=== PATIENT | female | born 1935 | race Caucasian/White ===

== ENCOUNTER 2019-06-30 12:26 | Emergency (ER) | payer MEDICARE ==
[~2019-06-30] VITALS: Ht 162.6 cm; Wt 63.6 kg
[~2019-06-30 12:26] MED LIST: HYDR-3713 PO; HYDR1OIN2 TOP; KEFL500C17 PO; LIPI20TA PO; LOSA50TA88 PO; PRED5PAK PO; TOPR50TA PO; VALI5TAB PO
[2019-06-30] MEDS ORDERED: MECLIZINE 25 MG TABLET PO ONE (13:15)
--- NOTE | 2019-06-30 13:47 | REP ---
CT study of the cervical spine without contrast: History: Dizziness and head injury. Technique: Helical scanning is acquired and overlapping 2 mm high resolution axial images were generated and reviewed at bone and soft tissue window settings. Coronal and sagittal multiplanar re-formations images are generated. CT findings: There is no evidence of cervical spine element fracture. No skull base fracture is seen. Cervical vertebral body heights are preserved. Alignment is normal. Facet joints are normally aligned bilaterally at each cervical level on multiplanar re-formations images. There is no evidence of intraspinal or paraspinal hematoma. No extra vertebral abnormality is seen. There is reversal of the normal cervical lordosis. Advanced degenerative disc disease is seen at C3-4 seen 05/21 C5-6 and C6-7. There are osteoarthritic facet changes in the mid cervical spine bilaterally. There is central disc bulging at C3-4. Impression: Fairly advanced degenerative disc disease with reversal of the normal cervical lordosis and facet osteoarthritis. Otherwise negative CT study of the cervical spine without contrast. No fracture seen. Electronically Signed by Jl Jones MD 06/30/2019 01:39 P
[2019-06-30 13:52] LABS: BASO % 0.5 % (0.0-1.0); EOS % 0.3 % (0.0-3.0); HEMATOCRIT 39.7 % (36.0-47.0); HEMOGLOBIN 12.8 g/dl (12.0-15.5); LYMPH # 2.1 10^3/uL (1.5-5.0); LYMPH % 27.1 % (24.0-44.0); MEAN CORPUSCULAR HEMOGLOBIN 29.4 pg (27.0-33.0); MEAN CORPUSCULAR HGB CONC 32.2 g/dl (32.0-36.5); MEAN CORPUSCULAR VOLUME 91.3 fl (80.0-96.0); MONO % 13.2 % (0.0-5.0); NEUTROPHILS # 4.6 10^3/uL (1.5-8.5); NEUTROPHILS % 58.6 % (36.0-66.0); PLATELET COUNT, AUTOMATED 286 10^3/uL (150-450); RED BLOOD COUNT 4.35 10^6/uL (4.00-5.40); WHITE BLOOD COUNT 7.8 10^3/uL (4.0-10.0)
[2019-06-30 14:26] LABS: BLOOD UREA NITROGEN 15 MG/DL (7-18); CALCIUM LEVEL 9.2 MG/DL (8.8-10.2); CARBON DIOXIDE LEVEL 26 MEQ/L (21-32); CHLORIDE LEVEL 103 MEQ/L (98-107); CK-MB VALUE MASS 1.1 NG/ML (<3.6); CPK CREATINE PHOSPHOKINASE 50 U/L (26-192); GLOMERULAR FILTRATION RATE > 60.0 (>32); GLUCOSE, FASTING 85 MG/DL (70-100); POTASSIUM SERUM 4.3 MEQ/L (3.5-5.1); SODIUM LEVEL 137 MEQ/L (136-145); THYROID STIMULATING HORMONE 0.967 uIU/ML (0.358-3.740); TROPONIN I < 0.02 NG/ML (< 0.10)
--- NOTE | 2019-06-30 14:44 | REP ---
CT BRAIN WITHOUT CONTRAST: HISTORY: Head injury. Dizziness. Comparison CT study of the brain is from May 10, 2008. FINDINGS: Preliminary digital religious education director radiograph is unremarkable. There is vascular calcification in the distal internal carotid arteries bilaterally. The visualized paranasal sinuses are clear. No intraorbital abnormality is seen. There is mild generalized volume loss. Bilateral periventricular white matter low densities are seen consistent with small vessel changes. I suspect old lacunar infarcts in the basal ganglia bilaterally and in the periventricular frontal lobe white matter. There is no evidence of intracranial hemorrhage. No acute infarction is seen. No extra-axial fluid collection is observed. There is some physiologic calcification in the basal ganglia on the right which is unchanged. IMPRESSION: Mild diffuse atrophy, vascular calcification, small vessel changes. Old lacunar infarcts in the basal ganglia bilaterally. No acute intracranial abnormality. No skull fracture or intracranial injury seen. Electronically Signed by Jl Jones MD 06/30/2019 04:17 P
[2019-06-30] MEDS ORDERED: CETI10CA2 PO (15:25)
[2019-06-30] MEDS ORDERED: KEFL500C17 PO (15:25)
[2019-06-30] MEDS ORDERED: FLON1SPR NARES (15:25)
[2019-06-30] MEDS ORDERED: CEPHALEXIN 500 MG CAP PO ONE (15:30)
[2019-06-30 15:43] VITALS: BP 155/73
--- NOTE | 2019-06-30 22:17 | ECGEPIP ---
[facility] - ED Test Date: 2019-06-30 Pat Name: RONEL MAE Department: Room: - Gender: Female Typing Teacher: : 1935 Requested By: FABIO BELTRAN Order Number: [id number] Reading MD: Jas Pizano Measurements Intervals [place] Rate: 78 P: -37 GA: 185 QRS: 11 QRSD: 89 T: 13 QT: 366 QTc: 419 Interpretive Statements SINUS RHYTHM POOR R WAVE PROGRESSION NSTTW ABNORMALITIES SIMILAR TO 11/17/14 Electronically Signed on 06-30-2019 22:17:28 EDT by Jas Pizano
== END 2019-06-30 15:59 | disposition home or self-care (01) ==
LOC: M ED 12:26
DX: N39.0 Urinary tract infection, site not specified (principal); H65.03 Acute serous otitis media, bilateral; R42 Dizziness and giddiness; R29.6 Repeated falls; I10 Essential (primary) hypertension; E78.5 Hyperlipidemia, unspecified; Z88.5 Allergy status to narcotic agent; Z79.899 Other long term (current) drug therapy

== ENCOUNTER → 2019-09-29 | Outpatient (CLI) | payer MEDICARE ==
[~2019-09-29] MED LIST changes: +CETI10CA2 PO; +FLON1SPR NARES
--- NOTE | 2019-11-26 10:07 | REP ---
LEFT SHOULDER: 2-VIEWS HISTORY: Pain following an injury. FINDINGS: 2-views of the left shoulder are performed. No acute fracture or dislocation is seen. There is mild narrowing and spurring at the acromioclavicular joint. There is mild to moderate narrowing and spurring at the glenohumeral joint. IMPRESSION: Arthritic changes without evidence of acute fracture or dislocation. SUSIE
--- NOTE | 2019-11-26 10:08 | REP ---
LEFT ELBOW SERIES: 4-VIEWS HISTORY: Injury with pain. FINDINGS: 4-views of the left elbow are performed. No acute fracture or dislocation is seen. There is mild chondrocalcinosis at the elbow joint. There are mild tendinous calcifications at the humeral epicondyles. There are some ill-defined soft tissue calcifications in the proximal anterior forearm. I do not see a definite joint effusion. Minimal calcifications are seen in the distal triceps tendon. IMPRESSION: No acute fracture or dislocation. MTDD
--- NOTE | 2019-11-26 10:09 | REP ---
LEFT WRIST SERIES: 4-VIEWS HISTORY: Injury, pain. FINDINGS: 4-views of the left wrist are performed. I see no evidence of acute fracture or dislocation. There is diffuse chondrocalcinosis noted at the wrist and intercarpal joints. There is slight ulnar minus variance with the distal ulna approximately 3-4 mm shorter than the radius. There is moderate narrowing and sclerotic change at the joint between the scaphoid and trapezium. There is mild widening of the space between the scaphoid and lunate bones suggesting a scapholunate ligament tear. IMPRESSION: No acute fracture. There appears to be some widening of the scapholunate interval suggesting a scapholunate ligament tear. There are arthritic changes, as above. MTDD
--- NOTE | 2019-11-26 10:10 | REP ---
LEFT HAND SERIES: 4-VIEWS HISTORY: Injury with pain. FINDINGS: 4-views of the left hand performed. No acute fracture is seen. There is widening of the space between the scaphoid and lunate suggesting a scapholunate ligament tear. There is diffuse chondrocalcinosis at the wrist joint and intercarpal joints with mild periarticular calcifications noted at the metacarpophalangeal and interphalangeal joints. There is mild narrowing of the radiocarpal joint with subchondral sclerosis. There is moderate narrowing between the scaphoid and trapezium with subchondral sclerosis and mild narrowing between the trapezium and base of first metacarpal. There is moderate narrowing of the second through fourth metacarpophalangeal joints. There is mild diffuse narrowing of interphalangeal joints with mild scattered spurring predominantly at the base of the first through third distal phalanges. IMPRESSION: No acute fracture. Widening of the scapholunate interval suggests a scapholunate ligament tear. There are diffuse arthritic changes, as above. MTDD
== END ==
LOC: M WUC 09:38
PROVIDERS: ATTEND Physician Assistant
DX: M25.512 Pain in left shoulder (principal); M25.532 Pain in left wrist

== ENCOUNTER 2020-06-29 11:34 | Observation (INO) | payer MEDICARE ==
[~2020-06-29] VITALS: Ht 162.6 cm; Wt 62.9 kg
--- NOTE | 2020-06-29 12:13 | REPVR ---
PROCEDURE INFORMATION: Exam: CT Maxillofacial Without Contrast Exam date and time: 06/29/2020 11:39 AM Age: 84 years old Clinical indication: Injury or trauma; Fall; Blunt trauma (contusions or hematomas); Cheek bone and head/scalp and nose and orbit/periorbital; Loss of consciousness not known; Not specified; Bilateral TECHNIQUE: Imaging protocol: Computed tomography images of the face without contrast. Radiation optimization: All CT scans at this facility use at least one of these dose optimization techniques: automated exposure control; mA and/or kV adjustment per patient size (includes targeted exams where dose is matched to clinical indication); or iterative reconstruction. COMPARISON: CT Head without contrast 06/30/2019 1:16 PM FINDINGS: Orbital cavity: Bilateral cataract Ocular globes are intact. Bones/joints: No acute facial bone fracture. Paranasal sinuses: Normal. No air-fluid levels. Soft tissues: There is midline and right forehead hematoma. Vasculature: There is calcification at left greater than right carotid bifurcations. IMPRESSION: No acute facial bone fracture. Electronically signed by: Lorena Denney On 06/29/2020 12:13:19 PM
--- NOTE | 2020-06-29 12:14 | REPVR ---
PROCEDURE INFORMATION: Exam: CT Head Without Contrast Exam date and time: 06/29/2020 11:39 AM Age: 84 years old Clinical indication: Injury or trauma; Fall; Blunt trauma (contusions or hematomas) TECHNIQUE: Imaging protocol: Computed tomography of the head without contrast. Radiation optimization: All CT scans at this facility use at least one of these dose optimization techniques: automated exposure control; mA and/or kV adjustment per patient size (includes targeted exams where dose is matched to clinical indication); or iterative reconstruction. COMPARISON: CT Head without contrast 06/30/2019 1:16 PM FINDINGS: Brain: There is no acute intracranial hemorrhage. There is lucency in the cerebral white matter, likely microvascular disease although non-specific. There are chronic bilateral basal ganglia lacunar infarcts. Lezama white differentiation is intact. There are no extra-axial fluid collections. No evidence of mass. There is no mass effect or midline shift. Cerebral ventricles: The ventricles and sulci are enlarged, consistent with volume loss / atrophy. No hydrocephalus. Bones/joints: No acute fracture. Paranasal sinuses: Visualized sinuses are unremarkable. No fluid levels. Mastoid air cells: No significant mastoid effusion. Vasculature: There is vascular calcification. Soft tissues: There is midline and right forehead scalp hematoma and laceration IMPRESSION: 1. No evidence of acute intracranial abnormality. No evidence of acute infarction, hemorrhage, or mass. 2. Atrophy and microvascular disease. Electronically signed by: Lorena Denney On 06/29/2020 12:13:59 PM
--- NOTE | 2020-06-29 12:19 | REPVR ---
PROCEDURE INFORMATION: Exam: CT Cervical Spine Without Contrast Exam date and time: 06/29/2020 11:39 AM Age: 84 years old Clinical indication: Injury or trauma; Fall; Blunt trauma TECHNIQUE: Imaging protocol: Computed tomography images of the cervical spine without contrast. Radiation optimization: All CT scans at this facility use at least one of these dose optimization techniques: automated exposure control; mA and/or kV adjustment per patient size (includes targeted exams where dose is matched to clinical indication); or iterative reconstruction. COMPARISON: CT Spine,cervical w/o contrast 06/30/2019 1:16 PM FINDINGS: Bones/joints: There is no acute fracture. There is stable alignment with kyphosis at C3-C4 and grade 1 anterolisthesis of C2 on C3 and C7 on T1 and retrolisthesis of C4 on C5. Discs/Spinal canal/Neural foramina: There are degenerative changes with various degrees of neural foraminal narrowing and spinal stenosis C3-C4 through C6-C7. Neural foraminal narrowing appears severe right C3-C4, bilateral C4-C5 through C5-C6, and right C6-C7. Thyroid: Subcentimeter low-density right thyroid nodule does not warrant further evaluation given size and patient's age. Lungs: Lung apices are unremarkable for acute finding. Soft tissues: Calcification at left greater than right bifurcations. IMPRESSION: No evidence of acute fracture. Degenerative changes. COMMENTS: Consistent with the [employer]'s Incidental Findings Committee white paper (J Am Margaret Radiol 2015): In patients aged 35 years and older with an incidental thyroid nodule equal to or greater than 1.[address], MRI or extrathyroidal US, further evaluation with dedicated thyroid US is recommended for patients with normal life expectancy and without comorbidities. For smaller nodules without suspicious features, no further evaluation or follow up is recommended. Electronically signed by: Lorena Denney On 06/29/2020 12:19:33 PM
[2020-06-29] MEDS ORDERED: LIDOCAINE W/EPINEPHRINE 1% 20ML VIAL SC ONE (12:20)
[2020-06-29] MEDS ORDERED: DERMABOND TOPICAL SKIN ADHESIVE TOP ONE (12:20)
[2020-06-29] MEDS ORDERED: LIDOCAINE W/EPINEPHRINE 1% 20ML VIAL As Ordered ONE (12:23)
[2020-06-29] MEDS ORDERED: BOOSTRIX/ADACEL VACCINE (DIPHTH/PERTUSS/ACELL/TETANUS) 0.5ML SYR IM ONE (12:25)
[2020-06-29 12:48] LABS: BASO # 0.1 10^3/uL (0.0-0.2); BASO % 0.7 % (0.0-1.0); EOS # 0.1 10^3/uL (0.0-0.5); EOS % 0.8 % (0.0-3.0); HEMATOCRIT 41.1 % (36.0-47.0); HEMOGLOBIN 12.9 g/dl (12.0-15.5); LYMPH % 26.6 % (24.0-44.0); MEAN CORPUSCULAR HEMOGLOBIN 29.5 pg (27.0-33.0); MEAN CORPUSCULAR HGB CONC 31.4 g/dl (32.0-36.5); MEAN CORPUSCULAR VOLUME 93.8 fl (80.0-96.0); MONO # 0.7 10^3/uL (0.0-0.8); MONO % 9.8 % (2.0-8.0); NEUTROPHILS # 4.6 10^3/uL (1.5-8.5); NEUTROPHILS % 61.8 % (36.0-66.0); PLATELET COUNT, AUTOMATED 224 10^3/uL (150-450); RED BLOOD COUNT 4.38 10^6/uL (4.00-5.40); WHITE BLOOD COUNT 7.4 10^3/uL (4.0-10.0)
--- NOTE | 2020-06-29 12:48 | REP ---
INDICATION: Syncope/near-syncope. COMPARISON: 05/09/2014 the latest prior, a PA and lateral exam TECHNIQUE: Portable FINDINGS: The technique utilized in obtaining the radiograph has magnified the cardiac silhouette and accentuated the interstitial markings. There is mild cardiomegaly accentuated by technique. Since the last examination, significant right hilar fullness has developed. The lung ascencio are otherwise clear and unchanged. The pleural angles are sharp. The osseous structures are within normal limits. IMPRESSION: Right hilar adenopathy is suspected on this portable exam. Contrast-enhanced CT examination of the chest is recommended. <Electronically signed by Tim Herbert > 06/29/20 [id number]
[2020-06-29 13:25] LABS: BLOOD UREA NITROGEN 16 MG/DL (7-18); CALCIUM LEVEL 9.6 MG/DL (8.8-10.2); CARBON DIOXIDE LEVEL 27 MEQ/L (21-32); CHLORIDE LEVEL 108 MEQ/L (98-107); CK-MB VALUE MASS 3.3 NG/ML (<3.6); CPK CREATINE PHOSPHOKINASE 209 U/L (26-192); CREATININE FOR GFR 0.82 MG/DL (0.55-1.30); FREE T4 0.91 NG/DL (0.76-1.46); GLOMERULAR FILTRATION RATE > 60.0 (>32); GLUCOSE, FASTING 101 MG/DL (70-100); MAGNESIUM LEVEL 1.9 MG/DL (1.8-2.4); MB/CK RELATIVE INDEX 1.58 (< OR =4); POTASSIUM SERUM 4.4 MEQ/L (3.5-5.1); SODIUM LEVEL 140 MEQ/L (136-145); TROPONIN I < 0.02 NG/ML (< 0.10)
--- NOTE | 2020-06-29 13:39 | REP ---
INDICATION: trauma. COMPARISON: Two views of the right hip 09/14/2011 and two views of the left hip 05/10/2008 TECHNIQUE: AP pelvis and two views left hip FINDINGS: The left hip prosthesis has been revised since the last exam. The femoral and acetabular components are again seen to be well seated and well approximated. Moderate to severe degenerative changes are seen involving the right hip which is asymmetrically narrowed with mild subchondral sclerosis and moderate marginal osteophytosis. No acute fracture, dislocation, or subluxation is seen on either side. Degenerative changes are seen involving the imaged portions spine, sacroiliac joints, and symphysis pubis. IMPRESSION: There is no evidence of an acute abnormality. Findings as described above. <Electronically signed by Tim Herbert > 06/29/20 [id number]
--- NOTE | 2020-06-29 13:42 | REP ---
INDICATION: trauma COMPARISON: Left shoulder 09/29/2019. TECHNIQUE: Three views bilateral shoulders. FINDINGS: There is no evidence of acute fracture, dislocation, or intrinsic bone disease.There is mild spurring at the bilateral acromioclavicular joints. Subchondral cystic changes seen in the bilateral humeral heads. The right humeral head is high riding compatible with a rotator cuff tear. IMPRESSION: No fracture or dislocation. Findings consistent with rotator cuff tear on the right. <Electronically signed by Alejandro Lezama > 06/29/20 [id number]
--- NOTE | 2020-06-29 13:56 | REP ---
INDICATION: trauma COMPARISON: 09/29/2019. TECHNIQUE: Four views left hand. FINDINGS: There is no evidence of acute fracture, dislocation, or intrinsic bone disease.There is mild radiocarpal joint space narrowing. There is chondrocalcinosis distal to the ulna. There is widening of the scapholunate interval as seen on prior study suggesting a chronic scapholunate ligament tear. There is stable moderate narrowing and sclerosis at the joint between the scaphoid and trapezoid. There is significant narrowing of the 2nd and 3rd metacarpophalangeal joints with mild to moderate narrowing of the 4th and 5th metacarpophalangeal joints. There is diffuse narrowing of interphalangeal joints with mild scattered spurring. IMPRESSION: No fracture or dislocation. Arthritic changes as above. <Electronically signed by Alejandro Lezama > 06/29/20 [id number]
[2020-06-29] MEDS ORDERED: LABETALOL 100MG/20ML VIAL IV STA (15:04)
[2020-06-29] MEDS: KETOROLAC 30 MG/ML 1ML VIAL IV PRN (16:56)
--- NOTE | 2020-06-29 16:56 | HPEPDOC ---
[facility] Medical History & Physical Date of Admission June 29, 2020 Date of Service: June 29, 2020 Attending Physician: RUPESH ALVAREZ MD History and Physical CHIEF COMPLAINT: Syncope and resultant fall with facial trauma HISTORY OF PRESENT ILLNESS: Very pleasant 84 yo W with a history of PMR, HTN, HLD and osteoarthritis who was brought into the ED via EMS after sudden witnessed syncope while she was walking in her residential diop at the [facility] where she resides independently. She does not remember the events of the syncope but notes that she had had cup of coffee for breakfast and was walking to the laundry room when lost consciousness and later woke up with people surrounding her. She denies any prior chest pain, palpitations, dizziness, nausea, vertigo, vision changes, loss of bladder or bowel control, fever, chills, breathlessness. She has no history of prior syncope but does report that her BP meds make her quite dizzy and so she takes them at night which usually goes well. In the ED she was hypertensive to 228/109, with a HR of 89 and was given labetalol 10mg IV x 1. Workup was notable for CT head that was negative for fracture, masses or bleeding, CT C-spine that was negative for fractures but showed degenerative changes and stenosis at various levels, maxillofacial CT that showed no acute fractures, CXR that showed R hilar adenopathy without rib fracture, infiltrates, or effusions, L hand XR that showed no fractures or dislocation, L hip A/P and lateral including pelvis XR that showed no acute abnormalities and bilateral shoulder XR that reported a right high riding humeral head c/w a rotator cuff tear with no acute fractures. EKG showed NSR with some PVCs, troponin was negative, covid-19 was negative on respiratory panel and CK was slightly elevated at 209. WBC was 7.4, hgb 12.9, platelets 224, na 140, K 4.4, Cr 0.82. She had several lacerations and bruising and received 5 stitches to R upper forehead, a L hand Dermabond, 4 stitches to the lateral right chin. She is now being admitted to medicine for observation with investigation of etiology of her syncopal episode. PAST MEDICAL HISTORY: PMR, HTN, HLD and osteoarthritis. PAST SURGICAL HISTORY: R knee surgery Back surgery x 2 L hip surgery SOCIAL HISTORY: Tobacco use: None ETOH: None Illicit drug use: None FAMILY HISTORY: Non contributory ALLERGIES: Please see below. REVIEW OF SYSTEMS: 10 point ROS was completed and all positive elements were noted in the HPI above. All other elements were otherwise negative. PHYSICAL EXAMINATION: VITAL SIGNS: See below GENERAL APPEARANCE: Elderly lady, with facial bruising and fresh stitches in severel places, NAD, pleasant though she appears uncomfortable HEENT: Has large strip of fresh stitches at R forehead into head, with some dried blood in hair. Also has 4 stitches at R chin, purple bruising of right eye. MMM, EOMI, PERRLA CARDIOVASCULAR: RRR, no m/r/g LUNGS: CTAB, has bruise at medial right upper chest ABDOMEN: Normoactive sounds, soft, NTND EXTREMITIES: WWP, no LE edema, has L thigh bruise NEUROLOGICAL: CN2-12 intact, AOx3, moving all extremities, grossly nonfocal examination PSYCHIATRIC: AOx3 LABORATORY DATA and IMAGING: summarized above per HPI, otherwise see below for details MICROBIOLOGY: Please see below. ASSESSMENT: 84 yo W with a history of PMR, HTN, HLD and osteoarthritis who was brought into the ED via EMS after sudden witnessed syncope while she was walking in her residential diop at the [facility] where she resides independently and is now admitted with hypertensive urgency, R shoulder rotator cuff tear and for investigations for her syncopal episode. Syncope: Possible 2/2 hypertensive crisis thought it may be that she became hypertensive after the fall and injuries with ongoing pain. Will investigate cardiac etiologies -CT head was without mass or acute pathology -EKG was non ischemic and troponin was negative -Telemetry -orthostatic vitals signs -TTE -treat high BP, s/p labetalol in the ED, will resume home meds -UA, low suspicion for infection -glucose was >100 Syncope related fall with facial trauma -tylenol for mild pain, PRN -toradol 30mg IV Q6HP for severe pain -s/p stitched in the ED as noted above -Ortho was consulted in the ED for the R rotator cuff tear and recommended sling and outpatient ortho follow up R rotator cuff tear: -Ortho was consulted in the ED for the R rotator cuff tear and recommended sling and outpatient ortho follow up Hypertensive urgency: -continue home QHS toprol and losartan -s/p labetalol in the ED DVT ppx: TEDs and SCDs given recent fall with head trauma Dispo: PCU for hypertensive urgency that may require IV pushes of antihypertensives, obs Vital Signs Vital Signs Date Time Temp Pulse Resp B/P (MAP) Pulse Ox O2 Delivery O2 Flow Rate FiO2 06/29/20 16:01 71 172/98 (122) 73 184/98 (126) 84 174/98 (123) 06/29/20 15:49 16 06/29/20 15:30 98 06/29/20 12:35 97.5 Room Air Laboratory Data Labs 24H Laboratory Tests 2 06/29/20 12:31: Immature Granulocyte % (Auto) 0.3, Neutrophils (%) (Auto) 61.8, Lymphocytes (%) (Auto) 26.6, Monocytes (%) (Auto) 9.8H, Eosinophils (%) (Auto) 0.8, Basophils (%) (Auto) 0.7, Neutrophils # (Auto) 4.6, Lymphocytes # (Auto) 2.0, Monocytes # (Auto) 0.7, Eosinophils # (Auto) 0.1, Basophils # (Auto) 0.1, Nucleated Red Blood Cells % (auto) 0.0, Anion Gap 5L, Glomerular Filtration Rate > 60.0, Calcium Level 9.6, Magnesium Level 1.9, Total Creatine Kinase 209H, Creatine Kinase MB 3.3, Creatine Kinase MB Relative Index 1.58, Troponin I < 0.02, Thyroid Stimulating Hormone (TSH) 1.890, Free Thyroxine 0.91 CBC/BMP Laboratory Tests 06/29/20 12:31 Microbiology Microbiology 06/29/20 Respiratory Virus Panel (PCR) (MOIZ) - Final, Complete Home Medications Scheduled Losartan Potassium (Losartan Potassium) 50 Mg Tab, 50 MG PO QHS Metoprolol Succinate (Toprol Xl) 50 Mg Tab, 50 MG PO QHS Allergies Coded Allergies: morphine (Verified Adverse Reaction, Intermediate, nausea/ vomiting , 06/30/19) A-FIB/CHADSVASC A-FIB History Current/History of A-Fib/PAF?: No Current PO Anticoag Therapy: No Age/Risk Factor Scoring CHADSVASC: CHADSVASC Response (Comments) Value Age Risk Factor Age >/= 75 years old 2 Gender Risk Factor Female 1 Hx of CHF No 0 Hx of HTN Yes 1 Hx of Stroke/TIA/or VTE No 0 Hx of Diabetes No 0 Hx of Vascular Disease No 0 Total 4 Treatment Treatment ordered: NONE Reason Anticoagulant not given: Not indicated/[id number] RUPESH ALVAREZ MD June 29, 2020 16:56
[2020-06-29 20:38] VITALS: BP 148/86
[2020-06-29] MEDS ORDERED: METOPROLOL SUCC (TopROL XL) 50MG **XL** TAB PO SCH (21:00)
[2020-06-29] MEDS: LOSARTAN 50MG TABLET PO SCH (21:53)
[2020-06-29] MEDS: ACETAMINOPHEN TAB 650MG DOSE (2X325MG) PO PRN (21:55)
[2020-06-29] MEDS ORDERED: METOPROLOL SUCC *XL* 25MG TAB (TopROL *XL*) PO SCH (22:20)
[2020-06-30] VITALS (7 sets, daily range): BP systolic 118–187; BP diastolic 61–79
[2020-06-30 05:14] LABS: HEMOGLOBIN 11.6 g/dl (12.0-15.5); MEAN CORPUSCULAR HEMOGLOBIN 29.7 pg (27.0-33.0); MEAN CORPUSCULAR HGB CONC 32.2 g/dl (32.0-36.5); MEAN CORPUSCULAR VOLUME 92.1 fl (80.0-96.0); PLATELET COUNT, AUTOMATED 198 10^3/uL (150-450); RED BLOOD COUNT 3.91 10^6/uL (4.00-5.40)
[2020-06-30 05:37] LABS: BLOOD UREA NITROGEN 14 MG/DL (7-18); CALCIUM LEVEL 8.7 MG/DL (8.8-10.2); CARBON DIOXIDE LEVEL 28 MEQ/L (21-32); CHLORIDE LEVEL 109 MEQ/L (98-107); CREATININE FOR GFR 0.81 MG/DL (0.55-1.30); GLOMERULAR FILTRATION RATE > 60.0 (>32); GLUCOSE, FASTING 85 MG/DL (70-100); MAGNESIUM LEVEL 1.9 MG/DL (1.8-2.4); SODIUM LEVEL 142 MEQ/L (136-145)
[2020-06-30] MEDS: ACETAMINOPHEN TAB 650MG DOSE (2X325MG) PO PRN (06:25)
[2020-06-30] MEDS ORDERED: METOPROLOL SUCC *XL* 25MG TAB (TopROL *XL*) PO ONE (08:00)
--- NOTE | 2020-06-30 11:04 | IPNPDOC ---
Text Note Date of Service The patient was seen on 06/30/20. NOTE Subjective: -No acute complaints -Pain is tolerable per her report -Left thigh swelling has subsided PHYSICAL EXAMINATION: VITAL SIGNS: See below GENERAL APPEARANCE: Elderly lady, with facial bruising and fresh stitches in severel places, NAD, pleasant though she appears uncomfortable HEENT: Has large strip of fresh stitches at R forehead into head, with some dried blood in hair. Also has 4 stitches at R chin, purple bruising of right eye. MMM, EOMI, PERRLA CARDIOVASCULAR: RRR, no m/r/g LUNGS: CTAB, has bruise at medial right upper chest ABDOMEN: Normoactive sounds, soft, NTND EXTREMITIES: WWP, no LE edema, has L thigh bruise NEUROLOGICAL: CN2-12 intact, AOx3, moving all extremities, grossly nonfocal examination PSYCHIATRIC: AOx3 LABORATORY DATA: WBC 5 Hgb 11.6 platelets 198 Na 142 K 4 Cr 0.81 MICROBIOLOGY: Please see below. ASSESSMENT: 84 yo W with a history of PMR, HTN, HLD and osteoarthritis who was brought into the ED via EMS after sudden witnessed syncope while she was walking in her residential diop at the [facility] and is now admitted with hypertensive urgency, R shoulder rotator cuff tear and for investigations for her syncopal episode. Syncope: Possible 2/2 hypertensive crisis thought it may be that she became hypertensive after the fall and injuries with ongoing pain. Will investigate cardiac etiologies -CT head was without mass or acute pathology -EKG was non ischemic and troponin was negative -Telemetry unremarkable thus far -orthostatic vitals signs were negative -f/u pending TTE -low suspicion for infection, CXR and UA were negative -glucose was >100 and continues to be normoglycemic Syncope related collapse with facial trauma -tylenol for mild pain, PRN -toradol 30mg IV Q6HP for severe pain -tramadol [id number] for moderate to severe pain -s/p stitched in the ED as noted above -Ortho was consulted by the ED for the R rotator cuff tear and recommended sling and outpatient ortho follow up R rotator cuff tear: -Ortho was consulted by the ED for the R rotator cuff tear and recommended sling and outpatient ortho follow up Hypertensive urgency: -continue home QHS toprol and losartan -s/p labetalol in the ED DVT ppx: TEDs and SCDs given recent fall with head trauma Dispo: obs pending TTE and PT/OT eval VS,Fishbone, I+O VS, Fishbone, I+O Laboratory Tests 06/29/20 12:31 06/30/20 04:57 Vital Signs Date Time Temp Pulse Resp B/P (MAP) Pulse Ox O2 Delivery O2 Flow Rate FiO2 06/30/20 07:13 96.9 62 19 187/79 (115) 100 Room Air I&O- Last 24 Hours up to 6 AM 06/30/20 06:00 Intake Total 240 ml Output Total 540 ml Balance -300 ml RUPESH ALVAREZ MD June 30, 2020 07:35
[2020-06-30] MEDS: traMADol 50 MG TAB PO PRN (11:39)
--- NOTE | 2020-06-30 13:42 | ECGEPIP ---
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
--- NOTE | 2020-06-30 14:25 | CR ---
ORTHOPEDIC CONSULTATION DATE: 06/29/2020 REASON FOR CONSULTATION: Right shoulder concern for rotator cuff tear. CHIEF COMPLAINT: Syncopal episode resulting in fall with some musculoskeletal complaints. HISTORY OF PRESENT ILLNESS: Patient is an 84-year-old female with a past medical history of hypertension, hyperlipidemia, osteoarthritis, who presented to the emergency department after a syncopal episode and a fall. She had multiple areas of bruising, but orthopedics was consulted for bilateral shoulder pain and concern for possible right rotator cuff tear. Also had some hand pain and some left hip pain. There were no fractures found on any of the imaging, but due to concern for possible rotator cuff tear on the right, orthopedics was consulted. Otherwise, no musculoskeletal complaints. PAST MEDICAL HISTORY: 1. Polymyalgia rheumatica (PMR). 2. Hypertension. 3. Hyperlipidemia. 4. Osteoarthritis. PAST SURGICAL HISTORY: 1. Right knee surgery. 2. Back surgery times two. 3. Left hip surgery, multiple. SOCIAL HISTORY: Tobacco: None. Alcohol: None. Drug use: None. FAMILY HISTORY: Noncontributory. ALLERGIES: See medical record. REVIEW OF SYSTEMS: A 10 point review of systems is complete and all positive elements were noted in the history of present illness (HPI). Otherwise, no other complaints. PHYSICAL EXAMINATION: GENERAL: Well-developed, well-nourished, no acute distress. NEUROLOGIC: Alert and oriented times four. PSYCHOLOGIC: Normal mood and affect. CARDIOVASCULAR: Regular rate and rhythm. RESPIRATORY: Nonlabored breathing. Equal chest rise and fall. ABDOMEN: Nontender. SKIN: There are some areas of bruising throughout her chest, upper extremities and face. She has a laceration on the right side of her chin that was closed previously. MUSCULOSKELETAL: Focused exam of bilateral shoulders demonstrates no ecchymosis, swelling or breaks in skin. The patient has near full range of active motion and passive motion. She is a little bit sore in her bilateral deltoids. She otherwise has no tenderness to palpation. Otherwise neurovascularly intact distally. Left hand has a small laceration that was glued in the emergency department. No other areas of tenderness to palpation. She is able to move her hand fully. Not much pain anymore. Neurovascularly intact. Left hip: She has good range of motion of the hip. She is able to stand without much pain. She has a little bit of lateral thigh tenderness, but is otherwise neurovascularly intact distally. IMAGING: X-rays of the left hip demonstrate prior instrumentation for a total hip arthroplasty. It appears to be within normal limits. Left hand demonstrates degenerative changes throughout, but no osseous abnormalities. Bilateral shoulders demonstrate right shoulder high-riding humeral head consistent with possible rotator cuff tear. There are no axillary images, but the shoulder does appear to be reduced on the scapula wide view. ASSESSMENT: This is an 84-year-old female with concern for possible right shoulder rotator cuff tear based on the x-rays. I had a long discussion with the patient about her previous shoulder status before her fall. She said that her shoulder has had some aches and pains in it for a long time and that at this point, the day after her fall, it feels about the same as it did. There is a high chance she had a rotator cuff tear and/or rotator cuff arthropathy in that right shoulder. She says it has been very functional other than some aches and pains. I recommend just getting bilateral axillary views of the shoulder to assure that the glenohumeral joint is reduced. If she wishes to proceed with any further workup, I would recommend right shoulder MRI and followup with orthopedic surgery as an outpatient. If she does not desire to do this because her shoulder feels okay, then that is up to her and she and I discussed this. For now, she can wear a sling for comfort only as needed. If she wishes not to wear it, then that is okay as well. As long as the x-rays of the x-rayed shoulder is okay, no other orthopedic evaluation is necessary during this hospital stay. Would recommend physical therapy, occupational therapy for mobilization and likely weightbearing as tolerated of the bilateral upper extremities and bilateral lower extremities.
[2020-06-30] MEDS: KETOROLAC 30 MG/ML 1ML VIAL IV PRN (17:22)
[2020-06-30] MEDS: LOSARTAN 50MG TABLET PO SCH (20:54)
[2020-06-30] MEDS: METOPROLOL SUCC (TopROL XL) 50MG **XL** TAB PO SCH (20:54)
[2020-06-30] MEDS ORDERED: METOPROLOL TART 25 MG TABLET PO SCH (21:00)
[2020-07-01] VITALS (8 sets, daily range): BP systolic 121–166; BP diastolic 57–100
[2020-07-01 05:05] LABS: HEMATOCRIT 38.5 % (36.0-47.0); HEMOGLOBIN 12.1 g/dl (12.0-15.5); MEAN CORPUSCULAR HEMOGLOBIN 29.5 pg (27.0-33.0); MEAN CORPUSCULAR HGB CONC 31.4 g/dl (32.0-36.5); MEAN CORPUSCULAR VOLUME 93.9 fl (80.0-96.0); PLATELET COUNT, AUTOMATED 216 10^3/uL (150-450); WHITE BLOOD COUNT 5.6 10^3/uL (4.0-10.0)
[2020-07-01 05:29] LABS: BLOOD UREA NITROGEN 22 MG/DL (7-18); CALCIUM LEVEL 8.7 MG/DL (8.8-10.2); CARBON DIOXIDE LEVEL 27 MEQ/L (21-32); CHLORIDE LEVEL 106 MEQ/L (98-107); CREATININE FOR GFR 0.86 MG/DL (0.55-1.30); GLOMERULAR FILTRATION RATE > 60.0 (>32); GLUCOSE, FASTING 92 MG/DL (70-100); POTASSIUM SERUM 4.6 MEQ/L (3.5-5.1); SODIUM LEVEL 138 MEQ/L (136-145)
[2020-07-01] MEDS: ACETAMINOPHEN TAB 650MG DOSE (2X325MG) PO PRN (09:07)
[2020-07-01] MEDS: KETOROLAC 30 MG/ML 1ML VIAL IV PRN ×2 (09:07→16:23)
--- NOTE | 2020-07-01 10:25 | REP ---
INDICATION: bilateral axillary views per orthopedics. COMPARISON: 06/29/2020. TECHNIQUE: Bilateral axillary views of the shoulders. FINDINGS: There is no acute fracture or dislocation. There is mild joint space narrowing bilaterally. IMPRESSION: Mild narrowing at the glenohumeral joints bilaterally. <Electronically signed by Alejandro Lezama > 07/01/20 1022
--- NOTE | 2020-07-01 11:17 | IPNPDOC ---
Text Note Date of Service The patient was seen on 07/01/20. NOTE Subjective: -No acute complaints -Pain is tolerable per her report -Left thigh swelling has subsided PHYSICAL EXAMINATION: VITAL SIGNS: See below GENERAL APPEARANCE: Elderly lady, with facial bruising and fresh stitches in severel places, NAD, pleasant though she appears uncomfortable HEENT: Has large strip of fresh stitches at R forehead into head, with some dried blood in hair. Also has 4 stitches at R chin, purple bruising of right eye. MMM, EOMI, PERRLA CARDIOVASCULAR: RRR, no m/r/g LUNGS: CTAB, has bruise at medial right upper chest ABDOMEN: Normoactive sounds, soft, NTND EXTREMITIES: WWP, no LE edema, has L thigh bruise NEUROLOGICAL: CN2-12 intact, AOx3, moving all extremities, grossly nonfocal examination PSYCHIATRIC: AOx3 LABORATORY DATA: WBC 5 Hgb 11.6 platelets 198 Na 142 K 4 Cr 0.81 MICROBIOLOGY: Please see below. ASSESSMENT: 84 yo W with a history of PMR, HTN, HLD and osteoarthritis who was brought into the ED via EMS after sudden witnessed syncope while she was walking in her residential diop at the [facility] where she resides independently and is now admitted with hypertensive urgency, R shoulder rotator cuff tear and for investigations for her syncopal episode. Syncope: Possible 2/2 hypertensive crisis thought it may be that she became hypertensive after the fall and injuries with ongoing pain. Will investigate cardiac etiologies -CT head was without mass or acute pathology -EKG was non ischemic and troponin was negative -Telemetry unremarkable thus far -orthostatic vitals signs were negative -f/u pending TTE -low suspicion for infection, CXR and UA were negative -glucose was >100 and continues to be normoglycemic Syncope related collapse with facial trauma -tylenol for mild pain, PRN -toradol 30mg IV Q6HP for severe pain -tramadol [id number] for moderate to severe pain -s/p stitched in the ED as noted above -Ortho was consulted by the ED for the R rotator cuff tear and recommended R shoulder XR with bilateral auxillary views, sling and outpatient ortho follow up. If XR is concerning, can consider MRI if she is agreeable but would otherwise follow up outpatient. R rotator cuff tear: -Ortho was consulted by the ED for the R rotator cuff tear and recommended sling and outpatient ortho follow up Hypertensive urgency: -continue home QHS toprol and losartan -s/p labetalol in the ED DVT ppx: TEDs and SCDs given recent fall with head trauma Dispo: obs pending TTE and PT/OT eval pending recommendations. VS,Fishbone, I+O VS, Fishbone, I+O Laboratory Tests 07/01/20 04:41 Vital Signs Date Time Temp Pulse Resp B/P (MAP) Pulse Ox O2 Delivery O2 Flow Rate FiO2 07/01/20 07:32 97.1 60 18 142/71 (94) 98 Room Air I&O- Last 24 Hours up to 6 AM 07/01/20 06:00 Intake Total 236 ml Output Total 700 ml Balance -464 ml RUPESH ALVAREZ MD July 01, 2020 08:55
[2020-07-01] MEDS: PANTOPRAZOLE 40MG TAB (PROTONIX) PO SCH (11:39)
[2020-07-01] MEDS: METOPROLOL SUCC (TopROL XL) 50MG **XL** TAB PO SCH (20:54)
[2020-07-01] MEDS: LOSARTAN 50MG TABLET PO SCH (20:55)
[2020-07-02] MEDS: traMADol 50 MG TAB PO PRN (04:37)
[2020-07-02 05:55] LABS: HEMATOCRIT 39.5 % (36.0-47.0); HEMOGLOBIN 12.9 g/dl (12.0-15.5); MEAN CORPUSCULAR HEMOGLOBIN 30.2 pg (27.0-33.0); MEAN CORPUSCULAR HGB CONC 32.7 g/dl (32.0-36.5); MEAN CORPUSCULAR VOLUME 92.5 fl (80.0-96.0); PLATELET COUNT, AUTOMATED 209 10^3/uL (150-450); RED BLOOD COUNT 4.27 10^6/uL (4.00-5.40); WHITE BLOOD COUNT 5.3 10^3/uL (4.0-10.0)
[2020-07-02 06:00] VITALS: BP 164/95
[2020-07-02 06:21] LABS: BLOOD UREA NITROGEN 21 MG/DL (7-18); CALCIUM LEVEL 8.8 MG/DL (8.8-10.2); CARBON DIOXIDE LEVEL 20 MEQ/L (21-32); CHLORIDE LEVEL 112 MEQ/L (98-107); CREATININE FOR GFR 0.87 MG/DL (0.55-1.30); GLOMERULAR FILTRATION RATE > 60.0 (>32); GLUCOSE, FASTING 91 MG/DL (70-100); MAGNESIUM LEVEL 2.1 MG/DL (1.8-2.4); POTASSIUM SERUM 4.7 MEQ/L (3.5-5.1); SODIUM LEVEL 141 MEQ/L (136-145)
--- NOTE | 2020-07-02 07:45 | ECHO ---
DATE OF PROCEDURE: 06/30/2020 Age: 84 Gender: Female Height: 64 inches Weight: 149 pounds REFERRING PHYSICIAN: Aditi Wall M.D. INDICATION: Syncope. MEASUREMENTS: IVS 1.2 cm LV 3.6 cm LVPW 1.0 cm LA 3.9 cm Aorta 2.6 cm Ascending aorta 4.1 IVC 1.8 cm Mitral E wave velocity 78 cm/s Mitral A wave 90 cm/s E prime septal 6.6 cm/s E prime lateral 7.2 cm/s FINDINGS: This study is of acceptable technical quality. The patient is in sinus rhythm. Left ventricle is normal size and systolic function with estimated EF around 60%. Computer calculated LVEF was 54%. I do not appreciate any segmental wall motion abnormalities. Right ventricle also appears to have normal size and systolic function. Both atria appear grossly normal. Aortic valve is tricuspid and has normal mobility. There are mild degenerative changes of the mitral valve with mitral annular calcifications, but mobility of leaflets is preserved. Tricuspid and pulmonic valves appear normal. No pericardial effusion is noted. Inferior vena cava is normal size and collapses with inspiration. Aortic root is normal. Ascending aorta is mildly dilated at 4.1 cm. Aortic arch was not well seen. Abdominal aorta appears normal. Doppler interrogation of the aortic valve reveals no stenosis or insufficiency. There is approximately [id number] mitral insufficiency, mild tricuspid insufficiency, and trace pulmonic insufficiency. Calculated pulmonary artery pressure is around 30 mmHg corresponding to borderline pulmonary hypertension. Mitral inflow pattern and tissue Doppler imaging of the mitral annulus revealed grade 1 diastolic dysfunction. CONCLUSIONS: 1. Study is of acceptable technical quality. Underlying sinus rhythm. 2. Normal LV size with borderline LVH and overall preserved LV systolic function. Grade 1 diastolic dysfunction. 3. [id number] mitral insufficiency. 4. Likely normal central venous pressure and borderline pulmonary hypertension. 5. Mildly dilated ascending aorta (4.1 cm). COMMENT: No findings to explain syncopal event. MTDD
[2020-07-02] MEDS: PANTOPRAZOLE 40MG TAB (PROTONIX) PO SCH (09:27)
[2020-07-02] MEDS: KETOROLAC 30 MG/ML 1ML VIAL IV PRN (10:13)
[2020-07-02] MEDS ORDERED: TRAM50TA2 PO (12:03)
[2020-07-02] MEDS ORDERED: ACET1TAB55 PO (12:03)
--- NOTE | 2020-07-02 12:34 | DS.PDOC ---
Discharge Summary General Date of Admission June 29, 2020 at 15:21 Date of Discharge 07/02/2020 Attending Physician: RUPESH ALVAREZ MD Discharge Summary PROCEDURES PERFORMED DURING STAY: Syncope ADMITTING DIAGNOSES: Syncope DISCHARGE DIAGNOSES: Syncope, likely vasovagal R rotator cuff tear 2/2 syncope with collapse Multiple facial lacerations s/p stitches HTN Osteoarthritis PMR COMPLICATIONS/CHIEF COMPLAINT: Multiple Lacerations,Syncope. HISTORY OF PRESENT ILLNESS: Very pleasant 84 yo W with a history of PMR, HTN, HLD and osteoarthritis who was brought into the ED via EMS after sudden witnessed syncope while she was walking in her residential diop at the [facility] where she resides independently. She did not remember the events of the syncope but noted that she had had cup of coffee for breakfast and was walking to the laundry room when lost consciousness and later woke up with people surrounding her. She denied any prior chest pain, palpitations, dizziness, nausea, vertigo, vision changes, loss of bladder or bowel control, fever, chills, breathlessness. She has no history of prior syncope but does report that her BP meds make her quite dizzy and so she takes them at night which usually goes well. HOSPITAL COURSE: In the ED she was hypertensive to 228/109, with a HR of 89 and was given labetalol 10mg IV x 1. Workup was notable for CT head that was negative for fracture, masses or bleeding, CT C-spine that was negative for fractures but showed degenerative changes and stenosis at various levels, maxillofacial CT that showed no acute fractures, CXR that showed R hilar adenopathy without rib fracture, infiltrates, or effusions, L hand XR that showed no fractures or dislocation, L hip A/P and lateral including pelvis XR that showed no acute abnormalities and bilateral shoulder XR that reported a right high riding humeral head c/w a rotator cuff tear with no acute fractures. EKG showed NSR with some PVCs, troponin was negative, covid-19 was negative on respiratory panel and CK was slightly elevated at 209. WBC was 7.4, hgb 12.9, platelets 224, na 140, K 4.4, Cr 0.82. She had several lacerations and bruising and received 5 stitches to R upper forehead, a L hand Dermabond, 4 stitches to the lateral right chin. She is now being admitted to medicine for observation with investigation of etiology of her syncopal episode. While inpatient, she had no abnormal events on telemetry and remained in sinus rhythm, had a TTE that showed a normal EF and systolic function with mild grade 1 diastolic dysfunction. She complained on neck and shoulder pain and orthopedics was consulted that recommended continuing splint, dedicated R shoulder imaging by XR that showed ... and otherwise outpatient follow up. She worked with PT/OT and initially her efforts were hindered by pain but that improved, though it should be noted that she is apprehensive about taking pain medication and has chronic dizziness and so I eventually convinced her to take full dose tylenol and tramadol when the pain is severe. She will be now discharged home with her daughter who will taker her to her home for a week or so before she returns to independently living at her [facility] apartment. DISCHARGE MEDICATIONS: Please see below. ALLERGIES: Please see below. PHYSICAL EXAMINATION ON DISCHARGE: VITAL SIGNS: Please see below. GENERAL APPEARANCE: Elderly lady, with facial bruising and fresh stitches on chin and R forehead, NAD pleasant HEENT: Has stitches at R forehead into her hair, with some dried blood in hair. Also has 4 stitches at R chin, purple bruising of right eye. MMM, EOMI, PERRLA CARDIOVASCULAR: RRR, no m/r/g LUNGS: CTAB, has bruise at medial right upper chest ABDOMEN: Normoactive sounds, soft, NTND EXTREMITIES: WWP, no LE edema, has L thigh bruise NEUROLOGICAL: CN2-12 intact, AOx3, moving all extremities, grossly nonfocal examination PSYCHIATRIC: AOx3 LABORATORY DATA: Please see below. IMAGING: XR shoulder: Bilateral axillary views of the shoulders. FINDINGS: There is no acute fracture or dislocation. There is mild joint space narrowing bilaterally. IMPRESSION: Mild narrowing at the glenohumeral joints bilaterally. Bilateral shoulder XR complete: There is no evidence of acute fracture, dislocation, or intrinsic bone disease.There is mild spurring at the bilateral acromioclavicular joints. Subchondral cystic changes seen in the bilateral humeral heads. The right humeral head is high riding compatible with a rotator cuff tear. IMPRESSION: No fracture or dislocation. Findings consistent with rotator cuff tear on the right. L hip XR: The left hip prosthesis has been revised since the last exam. The femoral and acetabular components are again seen to be well seated and well approximated. Moderate to severe degenerative changes are seen involving the right hip which is asymmetrically narrowed with mild subchondral sclerosis and moderate marginal osteophytosis. No acute fracture, dislocation, or subluxation is seen on either side. Degenerative changes are seen involving the imaged portions spine, sacroiliac joints, and symphysis pubis. IMPRESSION: There is no evidence of an acute abnormality. Findings as described above. L hand XR: There is no evidence of acute fracture, dislocation, or intrinsic bone disease.There is mild radiocarpal joint space narrowing. There is chondrocalcinosis distal to the ulna. There is widening of the scapholunate interval as seen on prior study suggesting a chronic scapholunate ligament tear. There is stable moderate narrowing and sclerosis at the joint between the scaphoid and trapezoid. There is significant narrowing of the 2nd and 3rd metacarpophalangeal joints with mild to moderate narrowing of the 4th and 5th metacarpophalangeal joints. There is diffuse narrowing of interphalangeal joints with mild scattered spurring. IMPRESSION: No fracture or dislocation. Arthritic changes as above. CXR: The technique utilized in obtaining the radiograph has magnified the cardiac silhouette and accentuated the interstitial markings. There is mild cardiomegaly accentuated by technique. Since the last examination, significant right hilar fullness has developed. The lung ascencio are otherwise clear and unchanged. The pleural angles are sharp. The osseous structures are within normal limits. IMPRESSION: Right hilar adenopathy is suspected on this portable exam. Contrast-enhanced CT examination of the chest is recommended. Maxillofacial CT: Orbital cavity: Bilateral cataract Ocular globes are intact. Bones/joints: No acute facial bone fracture. Paranasal sinuses: Normal. No air-fluid levels. Soft tissues: There is midline and right forehead hematoma. Vasculature: There is calcification at left greater than right carotid bifurcations. IMPRESSION: No acute facial bone fracture. CT head: Brain: There is no acute intracranial hemorrhage. There is lucency in the cerebral white matter, likely microvascular disease although non-specific. There are chronic bilateral basal ganglia lacunar infarcts. Lezama white differentiation is intact. There are no extra-axial fluid collections. No evidence of mass. There is no mass effect or midline shift. Cerebral ventricles: The ventricles and sulci are enlarged, consistent with volume loss / atrophy. No hydrocephalus. Bones/joints: No acute fracture. Paranasal sinuses: Visualized sinuses are unremarkable. No fluid levels. Mastoid air cells: No significant mastoid effusion. Vasculature: There is vascular calcification. Soft tissues: There is midline and right forehead scalp hematoma and laceration IMPRESSION: 1. No evidence of acute intracranial abnormality. No evidence of acute infarction, hemorrhage, or mass. 2. Atrophy and microvascular disease. CT C-spine: Bones/joints: There is no acute fracture. There is stable alignment with kyphosis at C3-C4 and grade 1 anterolisthesis of C2 on C3 and C7 on T1 and retrolisthesis of C4 on C5. Discs/Spinal canal/Neural foramina: There are degenerative changes with various degrees of neural foraminal narrowing and spinal stenosis C3-C4 through C6-C7. Neural foraminal narrowing appears severe right C3-C4, bilateral C4-C5 through C5-C6, and right C6-C7. Thyroid: Subcentimeter low-density right thyroid nodule does not warrant further evaluation given size and patient's age. Lungs: Lung apices are unremarkable for acute finding. Soft tissues: Calcification at left greater than right bifurcations. IMPRESSION: No evidence of acute fracture. Degenerative changes. COMMENTS: Consistent with the [employer]'s Incidental Findings Committee white paper (J Am Margaret Radiol 2015): In patients aged 35 years and older with an incidental thyroid nodule equal to or greater than 1.[address], MRI or extrathyroidal US, further evaluation with dedicated thyroid US is recommended for patients with normal life expectancy and without comorbidities. For smaller nodules without suspicious features, no further evaluation or follow up is recommended. PROGNOSIS: Good ACTIVITY: As tolerated. DIET: 2g sodium DISCHARGE PLAN: Home with daughter, PCP follow up, orthopedics referral DISPOSITION: Home DISCHARGE INSTRUCTIONS: Home with daughter, PCP follow up, orthopedics referral ITEMS TO FOLLOWUP ON ON OUTPATIENT: Syncope R rotator cuff tear HTN DISCHARGE CONDITION: Stable TIME SPENT ON DISCHARGE: 40 minutes. Vital Signs/I&Os Vital Signs Date Time Temp Pulse Resp B/P (MAP) Pulse Ox O2 Delivery O2 Flow Rate FiO2 07/02/20 06:00 97.4 59 16 164/95 (118) 99 Room Air I&O- Last 24 Hours up to 6 AM 07/02/20 05:59 Intake Total 776 ml Output Total 300 ml Balance 476 ml Laboratory Data Labs 24H Laboratory Tests 2 07/02/20 05:31: Nucleated Red Blood Cells % (auto) 0.4H, Anion Gap 9, Glomerular Filtration Rate > 60.0, Calcium Level 8.8, Magnesium Level 2.1 CBC/BMP Laboratory Tests 07/02/20 05:31 Microbiology Microbiology 06/29/20 Urine Culture - Final, Complete 06/29/20 Respiratory Virus Panel (PCR) (MOIZ) - Final, Complete Discharge Medications Scheduled Losartan Potassium (Losartan Potassium) 50 Mg Tab, 50 MG PO QHS, (Reported) Metoprolol Succinate (Toprol Xl) 50 Mg Tab, 50 MG PO QHS, (Reported) Scheduled PRN Acetaminophen (Acetaminophen) 325 Mg Tablet, 975 MG PO Q6HP PRN for MILD PAIN (PS 1-4) Tramadol HCl (Tramadol HCl) 50 Mg Tablet, 50 MG PO Q6HP PRN for MODERATE PAIN (PS 5-7) Allergies Coded Allergies: morphine (Verified Adverse Reaction, Intermediate, nausea/ vomiting , 06/30/19) RUPESH ALVAREZ MD July 02, 2020 12:34
[2020-07-02 14:00] VITALS: BP 162/94
== END 2020-07-02 16:15 | disposition home health service (06) ==
LOC: M ED 11:34 → M ED INP 15:21 → ENRESERV 18:33 → M PCU 20:39 → M MSPAV 07-01 22:46
PROVIDERS: ADMIT Internal Medicine; ATTEND Internal Medicine
DX: R55 Syncope and collapse (principal); S46.011A Strain of muscle(s) and tendon(s) of the rotator cuff of right shoulder, initial encounter; S01.81XA Laceration without foreign body of other part of head, initial encounter; W18.30XA Fall on same level, unspecified, initial encounter; Y92.198 Other place in other specified residential institution as the place of occurrence of the external cause; I16.0 Hypertensive urgency; M19.90 Unspecified osteoarthritis, unspecified site; R59.0 Localized enlarged lymph nodes; M35.3 Polymyalgia rheumatica; E78.5 Hyperlipidemia, unspecified; Z96.642 Presence of left artificial hip joint; Z79.899 Other long term (current) drug therapy; Z88.5 Allergy status to narcotic agent
CPT/HCPCS: 12001; 12013; 36415; 70450; 70486; 71045; 72125; 73020; 73030; 73130; 73502; 80048; 81001; 82550; 82553; 83735; 84439; 84443; 84484; 85025; 85027; 87086; 87798; 90471; 90715; 93005; 93041; 93306; 94760; 96374; 96375; 96376; 97110; 97116; 97162; 97165; 99285; G0378; J1885

== ENCOUNTER 2021-01-10 11:52 | Inpatient (IN) | payer MEDICARE ==
[~2021-01-10] VITALS: Ht 162.6 cm; Wt 81.9 kg
[~2021-01-10 11:52] MED LIST changes: +ACET1TAB55 PO; +LOSA50TA28 PO; -LOSA50TA88 PO; +TRAM50TA2 PO
[2021-01-10 12:49] LABS: BASO # 0.1 10^3/uL (0.0-0.2); BASO % 0.7 % (0.0-1.0); EOS % 0.6 % (0.0-3.0); HEMATOCRIT 41.4 % (36.0-47.0); HEMOGLOBIN 13.2 g/dl (12.0-15.5); LYMPH # 1.7 10^3/uL (1.5-5.0); LYMPH % 23.8 % (24.0-44.0); MEAN CORPUSCULAR HEMOGLOBIN 29.8 pg (27.0-33.0); MEAN CORPUSCULAR HGB CONC 31.9 g/dl (32.0-36.5); MEAN CORPUSCULAR VOLUME 93.5 fl (80.0-96.0); MONO # 0.9 10^3/uL (0.0-0.8); NEUTROPHILS # 4.4 10^3/uL (1.5-8.5); NEUTROPHILS % 62.3 % (36.0-66.0); PLATELET COUNT, AUTOMATED 247 10^3/uL (150-450); RED BLOOD COUNT 4.43 10^6/uL (4.00-5.40); WHITE BLOOD COUNT 7.1 10^3/uL (4.0-10.0)
[2021-01-10 13:25] LABS: RSV AMPLIFICATION NEGATIVE (NEGATIVE)
[2021-01-10 13:26] LABS: ALBUMIN 3.3 GM/DL (3.2-5.2); BILIRUBIN,DIRECT 0.1 MG/DL (0.0-0.2); BILIRUBIN,TOTAL 0.3 MG/DL (0.2-1.0); CALCIUM LEVEL 9.6 MG/DL (8.8-10.2); FREE T4 0.89 NG/DL (0.76-1.46); GLOMERULAR FILTRATION RATE 55.8 (>32); POTASSIUM SERUM 4.6 MEQ/L (3.5-5.1); THYROID STIMULATING HORMONE 1.37 uIU/ML (0.358-3.740); TOTAL PROTEIN 7.2 GM/DL (6.4-8.2)
[2021-01-10] MEDS ORDERED: ODOR100T3 PO (13:47)
[2021-01-10] MEDS ORDERED: HOME MED LIST COMPLETE! XX SCH (13:50)
[2021-01-10] MEDS ORDERED: METOPROLOL SUCC (TopROL XL) 50MG **XL** TAB PO ONE (16:10)
[2021-01-10] MEDS ORDERED: LOSARTAN 50MG TABLET PO ONE (16:10)
[2021-01-10] MEDS ORDERED: LOSARTAN 25 MG TAB PO ONE (16:10)
[2021-01-10] MEDS ORDERED: NORCO, ANEXSIA 5/325MG TABLET (HYDROcodone/ACETAMINOPHEN) PO ONE (16:20)
[2021-01-10] MEDS: hydrALAZINE 20MG/ML 1ML VIAL (J0360 PER 20MG) IV PRN (20:55)
[2021-01-11] MEDS ORDERED: LOSARTAN 50MG TABLET PO SCH (09:00)
[2021-01-11 09:07] LABS: HEMATOCRIT 42.3 % (36.0-47.0); HEMOGLOBIN 13.7 g/dl (12.0-15.5); MEAN CORPUSCULAR HEMOGLOBIN 29.9 pg (27.0-33.0); MEAN CORPUSCULAR HGB CONC 32.4 g/dl (32.0-36.5); MEAN CORPUSCULAR VOLUME 92.4 fl (80.0-96.0); PLATELET COUNT, AUTOMATED 250 10^3/uL (150-450); RED BLOOD COUNT 4.58 10^6/uL (4.00-5.40)
[2021-01-11 09:32] LABS: BLOOD UREA NITROGEN 18 MG/DL (7-18); CALCIUM LEVEL 9.1 MG/DL (8.8-10.2); CARBON DIOXIDE LEVEL 25 MEQ/L (21-32); CHLORIDE LEVEL 104 MEQ/L (98-107); CREATININE FOR GFR 0.89 MG/DL (0.55-1.30); GLOMERULAR FILTRATION RATE > 60.0 (>32); GLUCOSE, FASTING 105 MG/DL (70-100); MAGNESIUM LEVEL 2.2 MG/DL (1.8-2.4); POTASSIUM SERUM 4.4 MEQ/L (3.5-5.1); SODIUM LEVEL 136 MEQ/L (136-145)
[2021-01-11] MEDS ORDERED: KETOROLAC 30 MG/ML 1ML VIAL IV ONE (09:35)
[2021-01-11] MEDS: NS 0.45% 1,000 ML IV SCH ×2 (10:28→17:38)
[2021-01-11 10:43] LABS: APPEARANCE, URINE CLEAR (CLEAR); BACTERIA, URINE AUTO 1+ (NEGATIVE); BILIRUBIN, URINE AUTO NEGATIVE (NEGATIVE); BLOOD, URINE BLOOD NEGATIVE (NEGATIVE); COLOR, URINE YELLOW (YELLOW); GLUCOSE, URINE (UA) AUTO NEGATIVE (NEGATIVE); KETONE, URINE AUTO NEGATIVE (NEGATIVE); LEUKOCYTE ESTERASE, URINE AUTO 3+ (NEGATIVE); MUCUS, URINE SMALL (NEGATIVE); NITRITE, URINE AUTO NEGATIVE (NEGATIVE); PROTEIN, URINE AUTO NEGATIVE (NEGATIVE); RBC, URINE AUTO 1 /HPF (0-3); SPECIFIC GRAVITY URINE AUTO 1.008 (1.002-1.035); SQUAMOUS EPITHELIAL CELL UR AU 0 /HPF (0-6); UROBILINOGEN, URINE AUTO 0.2 mg/dL (0.0-2.0); WBC, URINE AUTO 148 /HPF (0-3)
[2021-01-11 10:45] VITALS: BP 184/79
[2021-01-11 12:00] VITALS: BP 140/83
[2021-01-11] MEDS: ACETAMINOPHEN 500 MG TAB PO SCH ×3 (12:13→23:19)
[2021-01-11] MEDS: BACTRIM 160MG/800MG DS TAB PO SCH ×2 (13:17→19:58)
[2021-01-11 16:00] VITALS: BP_SYST 140; BP_SYST 147; BP_DIAS 70; BP_DIAS 75
[2021-01-11 16:05] VITALS: BP 169/84
[2021-01-11 16:10] VITALS: BP 141/92
[2021-01-11 20:17] VITALS: BP 143/79
[2021-01-11] MEDS ORDERED: METOPROLOL SUCC (TopROL XL) 50MG **XL** TAB PO SCH (21:00)
[2021-01-11] MEDS ORDERED: LOSARTAN 25 MG TAB PO SCH (21:00)
[2021-01-12] VITALS: BP 155/86
[2021-01-12] MEDS: NS 0.45% 1,000 ML IV SCH (02:04)
[2021-01-12 04:00] VITALS: BP 180/90
[2021-01-12] MEDS: hydrALAZINE 20MG/ML 1ML VIAL (J0360 PER 20MG) IV PRN (04:02)
[2021-01-12 04:45] VITALS: BP 160/90
[2021-01-12] MEDS: ACETAMINOPHEN 500 MG TAB PO SCH (05:12)
[2021-01-12 07:27] VITALS: BP_SYST 136; BP_SYST 139; BP_SYST 146; BP_DIAS 67; BP_DIAS 68; BP_DIAS 74
[2021-01-12] MEDS: BACTRIM 160MG/800MG DS TAB PO SCH (08:30)
[2021-01-12 08:31] VITALS: BP 139/67
[2021-01-12] MEDS ORDERED: LOSARTAN 25 MG TAB PO SCH (09:00)
[2021-01-12] MEDS ORDERED: COZA1TAB PO (09:11)
[2021-01-12] MEDS ORDERED: BACTDSTA PO (09:11)
== END 2021-01-12 13:45 | disposition home health service (06) | DRG 305 ==
LOC: M ED 11:52 → EDBD 11:52 → M ED INP 16:03 → ENRESERV 01-11 07:40 → M PCU 01-11 10:45
PROVIDERS: ADMIT Internal Medicine; ATTEND Internal Medicine
DX: I16.0 Hypertensive urgency (principal); R55 Syncope and collapse; S40.022A Contusion of left upper arm, initial encounter; Z66 Do not resuscitate; H35.30 Unspecified macular degeneration; M47.9 Spondylosis, unspecified; S00.93XA Contusion of unspecified part of head, initial encounter; W01.0XXA Fall on same level from slipping, tripping and stumbling without subsequent striking against object, initial encounter; Y92.009 Unspecified place in unspecified non-institutional (private) residence as the place of occurrence of the external cause; Z20.822 Contact with and (suspected) exposure to COVID-19; Z79.899 Other long term (current) drug therapy; Z88.5 Allergy status to narcotic agent; Z91.14 Patient's other noncompliance with medication regimen; Z90.49 Acquired absence of other specified parts of digestive tract

== ENCOUNTER → 2021-01-21 | Outpatient (REF) | payer MEDICARE ==
[~2021-01-21] MED LIST changes: +BACTDSTA PO; +COZA1TAB PO; -LOSA50TA28 PO; +LOSA50TA88 PO; +ODOR100T3 PO
== END ==
LOC: M LAB REF 12:15
PROVIDERS: ATTEND Internal Medicine Cardiovascular Disease
DX: I49.1 Atrial premature depolarization (principal)

== ENCOUNTER → 2021-01-23 | Outpatient (CLI) | payer MEDICARE | LOC: M LABSMTC 11:00 | PROVIDERS: ATTEND Anesthesiology | DX: Z01.812 Encounter for preprocedural laboratory examination (principal); Z11.52 Encounter for screening for COVID-19 ==

== ENCOUNTER 2021-01-24 12:25 | Day surgery (SDC) | payer MEDICARE ==
[~2021-01-24] VITALS: Ht 162.6 cm; Wt 66.6 kg
[~2021-01-24 12:25] MED LIST changes: +LIDOCAINE 1% MDV 20ML VIAL SQ PRN; +LOSA50TA28 PO; -LOSA50TA88 PO; +LR 1,000 ML IV ONE; +ceFAZolin SOD 2 GM in IV 1 EA IV ONE
[2021-01-24] MEDS ORDERED: propofoL 200 MG/20 ML VIAL As Ordered ONE (14:51)
[2021-01-24] MEDS ORDERED: LIDOCAINE 2% 100MG/5ML SDV (FOR ANES.) As Ordered ONE (14:51)
[2021-01-24] MEDS ORDERED: ONDANSETRON 4MG/2ML VIAL As Ordered ONE (14:51)
[2021-01-24] MEDS ORDERED: fentaNYL 100 MCG/2 ML INJECTION As Ordered ONE (14:51)
[2021-01-24] MEDS ORDERED: MIDAZOLAM INJ 2MG/2ML VIAL (J2250 PER 1MG) As Ordered ONE (15:26)
[2021-01-24] MEDS ORDERED: LIDOCAINE 1% MDV 20ML VIAL As Ordered ONE (15:53)
[2021-01-24 17:26] VITALS: BP 139/71
== END 2021-01-24 17:33 | disposition home or self-care (01) ==
LOC: M SDC 12:25
PROVIDERS: ATTEND Internal Medicine Cardiovascular Disease
DX: R55 Syncope and collapse (principal); I49.1 Atrial premature depolarization; I10 Essential (primary) hypertension; E78.5 Hyperlipidemia, unspecified; M35.3 Polymyalgia rheumatica; M19.90 Unspecified osteoarthritis, unspecified site; M81.0 Age-related osteoporosis without current pathological fracture; R32 Unspecified urinary incontinence; Z88.5 Allergy status to narcotic agent; Z88.1 Allergy status to other antibiotic agents; Z79.899 Other long term (current) drug therapy
CPT/HCPCS: 33285; C1764; J0690; J2250; J2405; J3010

== ENCOUNTER 2023-06-09 12:18 | Observation (INO) | payer MEDICARE, MEDICAID ==
[~2023-06-09] VITALS: Ht 162.6 cm; Wt 63.6 kg
[~2023-06-09 12:18] MED LIST changes: -COZA1TAB PO; -LIDOCAINE 1% MDV 20ML VIAL SQ PRN; +LOSA-527 PO; -LR 1,000 ML IV ONE; -ceFAZolin SOD 2 GM in IV 1 EA IV ONE
[2023-06-09 13:04] LABS: BASO % 0.2 % (0.0-1.0); HEMOGLOBIN 13.1 g/dl (12.0-15.5); LYMPH # 0.7 10^3/uL (1.5-5.0); LYMPH % 6.1 % (24.0-44.0); MEAN CORPUSCULAR HEMOGLOBIN 29.8 pg (27.0-33.0); MEAN CORPUSCULAR HGB CONC 32.8 g/dl (32.0-36.5); MEAN CORPUSCULAR VOLUME 91.1 fl (80.0-96.0); MONO # 0.8 10^3/uL (0.0-0.8); MONO % 7.6 % (2.0-8.0); NEUTROPHILS # 9.5 10^3/uL (1.5-8.5); NEUTROPHILS % 85.6 % (36.0-66.0); PLATELET COUNT, AUTOMATED 285 10^3/uL (150-450); RED BLOOD COUNT 4.39 10^6/uL (4.00-5.40); WHITE BLOOD COUNT 11.1 10^3/uL (4.0-10.0)
[2023-06-09 13:28] LABS: CPK CREATINE PHOSPHOKINASE 66 U/L (34-145)
[2023-06-09 13:29] LABS: ALBUMIN 3.6 G/DL (3.2-5.2); ALKALINE PHOSPHATASE 92 U/L (46-116); ALT/SGPT < 9 U/L (7.0-40); AST/SGOT 20 U/L (<34); BILIRUBIN,DIRECT 0.2 MG/DL (<0.4); BILIRUBIN,TOTAL 0.6 MG/DL (0.3-1.2); BLOOD UREA NITROGEN 18 MG/DL (9-23); CALCIUM LEVEL 10.1 MG/DL (8.3-10.6); CARBON DIOXIDE LEVEL 26 MMOL/L (20-31); CHLORIDE LEVEL 103 MMOL/L (98-107); CK-MB VALUE MASS 1.5 NG/ML (<3.6); GLOMERULAR FILTRATION RATE > 60.0 (>32); GLUCOSE, FASTING 110 MG/DL (74-106); MB/CK RELATIVE INDEX 2.27 (< OR =4); POTASSIUM SERUM 3.8 MMOL/L (3.5-5.1); SODIUM LEVEL 137 MMOL/L (136-145); TOTAL PROTEIN 6.9 G/DL (5.7-8.2)
[2023-06-09 13:30] LABS: THYROID STIMULATING HORMONE 1.794 uIU/ML (0.55-4.78)
[2023-06-09] MEDS: BACITRACIN OINTMENT 30GM TUBE TOP ONE (14:59)
[2023-06-09] MEDS ORDERED: MOM 30ML SUSPENSION UDC PO PRN (16:00)
[2023-06-09] MEDS ORDERED: MAALOX 30 ML SUSP *UDC PO PRN (16:00)
[2023-06-09] MEDS: NS 1,000 ML IV SCH (16:57)
[2023-06-09] MEDS: cefTRIAXone SOD 1 GM in D5W MINI-BAG PLUS 50 ML IV ONE (16:57)
[2023-06-09] MEDS: ACETAMINOPHEN TAB 650MG DOSE (2X325MG) PO PRN (18:47)
[2023-06-09 18:50] VITALS: BP 144/67; TEMP 97.6; O2SAT 98
[2023-06-09] MEDS ORDERED: LOSA25TA13 PO (19:24)
[2023-06-09] MEDS ORDERED: HOME MED LIST COMPLETE! XX SCH (19:30)
[2023-06-09] MEDS: DOCUSATE SODIUM 100MG CAPSULE PO SCH (21:19)
[2023-06-10] VITALS: BP 139/88; TEMP 98.4; O2SAT 98
[2023-06-10 03:44] VITALS: BP 149/85; TEMP 98; O2SAT 95
[2023-06-10 06:06] LABS: BASO % 0.6 % (0.0-1.0); EOS % 0.4 % (0.0-3.0); HEMATOCRIT 35.1 % (36.0-47.0); HEMOGLOBIN 11.4 g/dl (12.0-15.5); LYMPH # 1.3 10^3/uL (1.5-5.0); LYMPH % 27.4 % (24.0-44.0); MEAN CORPUSCULAR HEMOGLOBIN 29.2 pg (27.0-33.0); MEAN CORPUSCULAR HGB CONC 32.5 g/dl (32.0-36.5); MEAN CORPUSCULAR VOLUME 89.8 fl (80.0-96.0); MONO # 0.8 10^3/uL (0.0-0.8); MONO % 17.3 % (2.0-8.0); NEUTROPHILS # 2.6 10^3/uL (1.5-8.5); NEUTROPHILS % 54.1 % (36.0-66.0); PLATELET COUNT, AUTOMATED 248 10^3/uL (150-450); RED BLOOD COUNT 3.91 10^6/uL (4.00-5.40); WHITE BLOOD COUNT 4.8 10^3/uL (4.0-10.0)
[2023-06-10 06:30] LABS: BLOOD UREA NITROGEN 15 MG/DL (9-23); CALCIUM LEVEL 9.5 MG/DL (8.3-10.6); CARBON DIOXIDE LEVEL 25 MMOL/L (20-31); CHLORIDE LEVEL 106 MMOL/L (98-107); CREATININE FOR GFR 0.77 MG/DL (0.55-1.30); GLOMERULAR FILTRATION RATE > 60.0 (>32); GLUCOSE, FASTING 92 MG/DL (74-106); MAGNESIUM LEVEL 1.8 MG/DL (1.8-2.4); POTASSIUM SERUM 4.1 MMOL/L (3.5-5.1); SODIUM LEVEL 138 MMOL/L (136-145)
[2023-06-10 07:26] VITALS: BP 148/83; TEMP 98.2; O2SAT 96
[2023-06-10] MEDS: HEPARIN SOD (PORCINE) 5000UNITS/ML 1ML VIAL/SYRINGE SQ SCH (11:02)
[2023-06-10 18:00] VITALS: BP 137/80; TEMP 97.2; O2SAT 98
[2023-06-10] MEDS: cefTRIAXone SOD 1 GM in D5W MINI-BAG PLUS 50 ML IV SCH (18:32)
[2023-06-10 20:20] VITALS: BP 139/79; TEMP 97.2; O2SAT 91
[2023-06-11 04:50] VITALS: BP 143/61; TEMP 97.2; O2SAT 93
[2023-06-11 06:18] LABS: BASO % 0.9 % (0.0-1.0); EOS # 0.1 10^3/uL (0.0-0.5); EOS % 1.7 % (0.0-3.0); HEMATOCRIT 35.7 % (36.0-47.0); HEMOGLOBIN 11.6 g/dl (12.0-15.5); LYMPH # 1.5 10^3/uL (1.5-5.0); MEAN CORPUSCULAR HEMOGLOBIN 29.5 pg (27.0-33.0); MEAN CORPUSCULAR HGB CONC 32.5 g/dl (32.0-36.5); MEAN CORPUSCULAR VOLUME 90.8 fl (80.0-96.0); MONO # 0.8 10^3/uL (0.0-0.8); MONO % 16.9 % (2.0-8.0); NEUTROPHILS # 2.3 10^3/uL (1.5-8.5); NEUTROPHILS % 49.3 % (36.0-66.0); PLATELET COUNT, AUTOMATED 238 10^3/uL (150-450); RED BLOOD COUNT 3.93 10^6/uL (4.00-5.40); WHITE BLOOD COUNT 4.7 10^3/uL (4.0-10.0)
[2023-06-11 06:43] LABS: BLOOD UREA NITROGEN 15 MG/DL (9-23); CALCIUM LEVEL 9.6 MG/DL (8.3-10.6); CARBON DIOXIDE LEVEL 25 MMOL/L (20-31); CHLORIDE LEVEL 108 MMOL/L (98-107); CREATININE FOR GFR 0.77 MG/DL (0.55-1.30); GLOMERULAR FILTRATION RATE > 60.0 (>32); GLUCOSE, FASTING 89 MG/DL (74-106); MAGNESIUM LEVEL 1.7 MG/DL (1.8-2.4); POTASSIUM SERUM 4.3 MMOL/L (3.5-5.1); SODIUM LEVEL 141 MMOL/L (136-145)
[2023-06-11] MEDS: MAG SULF 1GM/100ML (MAG RUN) 1 GM in IV 1 EA IV ONE (07:00)
[2023-06-11] MEDS: CEFDINIR 300 MG CAP (OMNICEF) PO SCH (08:09)
[2023-06-11] MEDS ORDERED: COLA100C5 PO (11:11)
[2023-06-11] MEDS ORDERED: CEFD300CAP PO (11:11)
== END 2023-06-11 12:32 | disposition home health service (06) ==
LOC: EDBD 12:18 → M ED 12:18 → M ED INP 12:19 → M PCU 18:18 → M MSPAV 06-10 17:15
PROVIDERS: ADMIT Internal Medicine; ATTEND Internal Medicine
DX: S01.81XA Laceration without foreign body of other part of head, initial encounter (principal); W19.XXXA Unspecified fall, initial encounter; Y92.098 Other place in other non-institutional residence as the place of occurrence of the external cause; Y93.01 Activity, walking, marching and hiking; Y99.8 Other external cause status; R41.82 Altered mental status, unspecified; R82.89 Other abnormal findings on cytological and histological examination of urine; D72.829 Elevated white blood cell count, unspecified; I10 Essential (primary) hypertension; E78.5 Hyperlipidemia, unspecified; M35.3 Polymyalgia rheumatica; M19.90 Unspecified osteoarthritis, unspecified site; M25.559 Pain in unspecified hip; Z96.642 Presence of left artificial hip joint; I67.82 Cerebral ischemia; G31.1 Senile degeneration of brain, not elsewhere classified; R11.0 Nausea; Z98.41 Cataract extraction status, right eye; Z98.42 Cataract extraction status, left eye; Z98.1 Arthrodesis status; Z95.818 Presence of other cardiac implants and grafts; Z79.899 Other long term (current) drug therapy; Z88.5 Allergy status to narcotic agent; Z66 Do not resuscitate
CPT/HCPCS: 12011; 36415; 51701; 70450; 70486; 71045; 72125; 73502; 73552; 73590; 80047; 80048; 80076; 81001; 82140; 82550; 82553; 83605; 83735; 84145; 84443; 84484; 85025; 87086; 93005; 93041; 93306; 94760; 96361; 96365; 96372; 96376; 97116; 97161; 97165; 97530; 97535; 99285; G0378; J0696; J3475

== ENCOUNTER 2023-07-05 14:45 | Emergency (ER) | payer MEDICARE, MEDICAID ==
[~2023-07-05] VITALS: Ht 162.6 cm; Wt 52.9 kg
[~2023-07-05 14:45] MED LIST changes: +CEFD300CAP PO; +COLA100C5 PO; +LOSA25TA13 PO
[2023-07-05] MEDS ORDERED: ACET325C5 PO (15:07)
[2023-07-05 15:22] LABS: VENOUS BASE EXCESS 0.4 (-2.0-2.0); VENOUS HCO3 23.4 MMOL/L (23.0-27.0); VENOUS O2 SATURATION 67.4 % (60.0-80.0); VENOUS PARTIAL PRESSURE CO2 32.7 mmHg (38.0-50.0); VENOUS PARTIAL PRESSURE O2 31.7 mmHg (30.0-50.0); VENOUS PH 7.472 UNITS (7.330-7.430); VENOUS STANDARD HCO3 24.2 MMOL/L; VENOUS TOTAL CO2 24.4 MMOL/L (24.0-28.0)
[2023-07-05 15:32] LABS: BASO % 0.5 % (0.0-1.0); EOS % 0.1 % (0.0-3.0); HEMOGLOBIN 12.2 g/dl (12.0-15.5); LYMPH # 1.8 10^3/uL (1.5-5.0); MEAN CORPUSCULAR HEMOGLOBIN 29.5 pg (27.0-33.0); MEAN CORPUSCULAR VOLUME 89.6 fl (80.0-96.0); MONO # 0.7 10^3/uL (0.0-0.8); MONO % 9.8 % (2.0-8.0); NEUTROPHILS # 4.9 10^3/uL (1.5-8.5); NEUTROPHILS % 65.3 % (36.0-66.0); PLATELET COUNT, AUTOMATED 323 10^3/uL (150-450); RED BLOOD COUNT 4.13 10^6/uL (4.00-5.40); WHITE BLOOD COUNT 7.5 10^3/uL (4.0-10.0)
[2023-07-05] MEDS ORDERED: ISOVUE-370 76% 100ML VIAL As Ordered ONE (15:37)
[2023-07-05 16:03] LABS: ALBUMIN 3.4 G/DL (3.2-5.2); ALKALINE PHOSPHATASE 106 U/L (46-116); ALT/SGPT < 9 U/L (7.0-40); AST/SGOT 18 U/L (<34); BILIRUBIN,DIRECT 0.2 MG/DL (<0.4); BILIRUBIN,TOTAL 0.8 MG/DL (0.3-1.2); BLOOD UREA NITROGEN 21 MG/DL (9-23); CALCIUM LEVEL 9.6 MG/DL (8.3-10.6); CARBON DIOXIDE LEVEL 23 MMOL/L (20-31); CHLORIDE LEVEL 101 MMOL/L (98-107); GLOMERULAR FILTRATION RATE 55.6 (>32); GLUCOSE, FASTING 120 MG/DL (74-106); MAGNESIUM LEVEL 1.8 MG/DL (1.8-2.4); SODIUM LEVEL 133 MMOL/L (136-145)
[2023-07-05 16:05] LABS: THYROID STIMULATING HORMONE 1.161 uIU/ML (0.55-4.78)
[2023-07-05] MEDS: NS 500 ML IV ONE (16:07)
[2023-07-05 16:32] LABS: ERYTHROCYTE SEDIMENTATION RATE 97 mm/hr (0-30)
[2023-07-05 16:35] LABS: CPK CREATINE PHOSPHOKINASE 36 U/L (34-145)
[2023-07-05 17:00] VITALS: O2SAT 97
[2023-07-05] MEDS ORDERED: HOME MED LIST COMPLETE! XX SCH (17:00)
[2023-07-05 17:14] LABS: OSMOLALITY SERUM 283 MOSM/KG (280-301)
[2023-07-05] MEDS ORDERED: PRED10TA2 PO (17:16)
[2023-07-05 17:17] VITALS: BP 163/74
[2023-07-05] MEDS: predniSONE 20 MG TAB PO ONE (17:21)
[2023-07-05 17:39] VITALS: TEMP 98.4
== END 2023-07-05 17:38 | disposition home or self-care (01) ==
LOC: M ED 14:45
DX: M35.3 Polymyalgia rheumatica (principal); I10 Essential (primary) hypertension; Z88.5 Allergy status to narcotic agent
CPT/HCPCS: 70450; 75635; 80047; 80048; 80076; 81001; 82550; 82803; 83605; 83735; 83930; 84443; 85025; 85652; 86140; 87086; 93005; 93041; 94760; 96360; 96361; 99285; J7512; Q9967